=== PATIENT | female | born 1965 | race Two or more races ===

== ENCOUNTER → 2019-11-10 | Outpatient (CLI) | payer OTHER ==
--- NOTE | 2019-11-10 13:04 | US ---
EXAMINATION TYPE: US kidneys/renal and bladder DATE OF EXAM: 11/10/2019 COMPARISON: 02/09/2016 CLINICAL HISTORY: History of DVT M19.604 Kidney stone. Left flank pain. EXAM MEASUREMENTS: Right Kidney: 9.6 x 4.4 x 4.2 cm Left Kidney: 10.5 x 4.9 x 5.7 cm Right Kidney: No hydronephrosis or masses seen Left Kidney: Lower pole echogenic focus = 0.5 cm. Possible mild hydronephrosis. Bladder: distended, anechoic Bilateral Jets seen IMPRESSION: 5 mm lower pole left renal calculus with mild left hydronephrosis.
--- NOTE | 2019-11-10 13:06 | US ---
EXAMINATION TYPE: US venous doppler duplex LE DATE OF EXAM: 11/10/2019 12:39 PM COMPARISON: NONE CLINICAL HISTORY: R10.9 Left Flank pain Z87.422 History of Kidney stones. Factor 5. Right leg pain. No redness or swelling. On blood thinners. Hx DVT bilateral leg SIDE PERFORMED: Bilateral TECHNIQUE: The lower extremity deep venous system is examined utilizing real time linear array sonog shawna with graded compression, doppler sonography and color-flow sonography. VESSELS IMAGED: External Iliac Vein (EIV) Common Femoral Vein Deep Femoral Vein Greater Saphenous Vein * Femoral Vein Popliteal Vein Small Saphenous Vein * Proximal Calf Veins (* superficial vessels) Right Leg: Negative for DVT Left Leg: Negative for DVT IMPRESSION: 1. No diagnostic evidence of DVT bilaterally.
== END | disposition home or self-care (01) ==
LOC: RADUSWWP 12:02
PROVIDERS: ATTEND Family Medicine
DX: N13.2 Hydronephrosis with renal and ureteral calculous obstruction (principal); M79.662 Pain in left lower leg; M79.661 Pain in right lower leg; Z86.718 Personal history of other venous thrombosis and embolism
CPT/HCPCS: 76770; 93970

== ENCOUNTER → 2019-11-16 | Outpatient (CLI) | payer OTHER ==
--- NOTE | 2019-11-16 15:42 | CT ---
EXAMINATION TYPE: CT abdomen pelvis wo con DATE OF EXAM: 11/16/2019 COMPARISON: Renal ultrasound dated 11/10/2019 HISTORY: flank pain and bloating, hx of stones CT DLP: 919.3 mGycm Examination of the solid and hollow viscera is limited given the lack of contrast. FINDINGS: LUNG BASES: No evidence for nodule. No evidence for infiltrate. LIVER/GB: The gallbladder is unremarkable. No space-occupying hepatic lesion. PANCREAS: No pancreatic mass identified. No inflammatory process seen. SPLEEN: No evidence for splenomegaly. No intrasplenic lesions seen. ADRENALS: No adrenal nodules identified. No evidence for thickening. KIDNEYS: 5.5 mm calculus lower pole left kidney without obstruction. Smaller 2 mm calculus mid pole l eft kidney. No right-sided nephrolithiasis. No evidence for hydronephrosis or renal mass. BOWEL: Appendix has a normal appearance. No evidence of bowel obstruction. No inflammatory process. Lymph nodes: No evidence for adenopathy greater than 1 cm. Abdominal aorta: Atheromatous changes seen. No evidence for aneurysm. Genital organs: No significant abnormality. Other: No significant abnormality. IMPRESSION: NONOBSTRUCTING LEFT-SIDED NEPHROLITHIASIS.
== END | disposition home or self-care (01) ==
LOC: RADCTMAIN 13:35
PROVIDERS: ATTEND Family Medicine
DX: N20.0 Calculus of kidney (principal)
CPT/HCPCS: 74176